=== PATIENT | female | born 1950 | race Caucasian/White ===

== ENCOUNTER 2020-05-02 11:05 | Outpatient (CLI) | payer MEDICARE, SELFPAY ==
[2020-05-08 06:48] LABS: Triiodothyronine T3 Free 2.9 pg/mL (2.3-4.2)
== END 2020-05-02 11:06 | disposition home or self-care (01) ==
PROVIDERS: PCP Family Medicine; Visit Provider Internal Medicine Endocrinology, Diabetes & Metabolism
DX: E03.9 Hypothyroidism, unspecified (principal); E04.9 Nontoxic goiter, unspecified
CPT/HCPCS: 36415; 84439; 84443; 84481

== ENCOUNTER 2020-05-17 09:54 | Outpatient (CLI) | payer MEDICARE, SELFPAY ==
[2020-05-17 10:43] LABS: Anion Gap 5 mmol/L (8-16); Blood Urea Nitrogen 17 mg/dL (7-17); Calcium 9.3 mg/dL (8.4-10.2); Carbon Dioxide 28 mmol/L (22-30); Chloride 106 mmol/L (98-107); Estimated Glomerular Filt Rate > 60; Glucose 98 mg/dL (65-105); Potassium 4.4 mmol/L (3.4-5.0); Sodium 139 mmol/L (137-145)
== END 2020-05-17 09:55 | disposition home or self-care (01) ==
LOC: ANHLAB 09:56
PROVIDERS: PCP Family Medicine; Visit Provider Internal Medicine Endocrinology, Diabetes & Metabolism
DX: E23.6 Other disorders of pituitary gland (principal)
CPT/HCPCS: 36415; 80048; 82533

== ENCOUNTER 2020-05-30 10:58 | Outpatient (CLI) | payer MEDICARE, SELFPAY ==
[2020-06-03 05:06] LABS: Adrenocorticotropic Hormone 9 pg/mL (6-50)
== END 2020-05-30 10:59 | disposition home or self-care (01) ==
LOC: ANHLAB 11:00
PROVIDERS: PCP Family Medicine; Visit Provider Internal Medicine Endocrinology, Diabetes & Metabolism
DX: E23.6 Other disorders of pituitary gland (principal); R79.89 Other specified abnormal findings of blood chemistry
CPT/HCPCS: 36415; 82024

== ENCOUNTER 2020-07-04 08:51 | Outpatient (CLI) | payer MEDICARE, SELFPAY ==
[2020-07-07 21:24] LABS: Adrenocorticotropic Hormone 11 pg/mL (6-50)
== END 2020-07-04 08:52 | disposition home or self-care (01) ==
PROVIDERS: PCP Family Medicine; Visit Provider Internal Medicine Endocrinology, Diabetes & Metabolism
DX: E03.9 Hypothyroidism, unspecified (principal); E23.6 Other disorders of pituitary gland; M85.80 Other specified disorders of bone density and structure, unspecified site
CPT/HCPCS: 36415; 82024

== ENCOUNTER 2020-08-08 09:07 | Outpatient (CLI) | payer MEDICARE, SELFPAY ==
--- NOTE | ~2020-08-08 | MM_ITS ---
EXAMINATION: MM screening frank BI w fozia HISTORY: Screening mammogram TECHNIQUE: Craniocaudal and mediolateral oblique 3-D tomosynthesis images were obtained and synthetic 2-D images were generated. CAD analysis was submitted and interpreted. COMPARISON: 05/08/2019 left screening and right diagnostic digital mammogram and limited right breast ultrasound examination 10/29/2018, 04/10/2018 diagnostic right digital mammogram and limited right breast ultrasound examinatio ns 04/04/2018, 04/03/2017 bilateral digital screening mammogram examinations BREAST PARENCHYMAL COMPOSITION: There are scattered areas of fibroglandular density. FINDINGS: Stable mild fibroglandular asymmetry. There is no evidence of suspicious mass, calcificatio n, or architectural distortion to suggest malignancy in either breast. There has been no suspicious i nterval change. IMPRESSION: 1. No mammographic evidence of malignancy. 2. Recommend routine screening mammography in one year. BI-RADS Category 2: Benign finding(s). Reviewed, dictated and finalized at location A. ATION CONSULTANT
== END 2020-08-08 09:08 | disposition home or self-care (01) ==
LOC: ANHIMG 09:09
PROVIDERS: PCP Family Medicine; Visit Provider Obstetrics & Gynecology
DX: Z12.31 Encounter for screening mammogram for malignant neoplasm of breast (principal)
CPT/HCPCS: 77063; 77067

== ENCOUNTER 2020-08-08 09:51 | Outpatient (CLI) | payer MEDICARE, SELFPAY ==
[2020-08-08 12:53] LABS: Cortisol Random > 123.00 ug/dL
[2020-08-10 04:54] LABS: Adrenocorticotropic Hormone 10 pg/mL (6-50)
== END 2020-08-08 09:52 | disposition home or self-care (01) ==
PROVIDERS: PCP Family Medicine; Visit Provider Internal Medicine Endocrinology, Diabetes & Metabolism
DX: E23.6 Other disorders of pituitary gland (principal); Z12.31 Encounter for screening mammogram for malignant neoplasm of breast
CPT/HCPCS: 36415; 77063; 77067; 82024; 82533

== ENCOUNTER 2020-08-22 08:45 | Outpatient (CLI) | payer MEDICARE, SELFPAY ==
--- NOTE | ~2020-08-22 | DEXA_ITS ---
Bone Density Report Name: Monica Sosa Age: 70 Sex: Female Ethnicity: White Date of : 1950 Indication: postmenopausal; Referring Provider: KAYLA LITTLE Study: Bone densitometry was performed. Exam Date: August 22, 2020 Accession number: [id number] Bone Density: Region BMD T-score Z-score Classification AP Spine (L1-L4) 0.803 -2.2 -0.2 Osteopenia Femoral Neck (Left) 0.611 -2.1 -0.4 Osteopenia Total Hip (Left) 0.779 -1.3 0.1 Osteopenia Total Hip Bilateral Avg 0.742 -1.6 -0.2 Osteopenia Femoral Neck (Right) 0.602 -2.2 -0.5 Osteopenia Total Hip (Right) 0.705 -1.9 -0.5 Osteopenia World Health Organization criteria for BMD impression classify patients as: Normal (T-score at or above -1.0), Osteopenia (T-score between -1.0 and -2.5), or Osteoporosis (T-score at or below -2.5). 10-year Fracture Risk: FRAX not reported because: Treated for osteoporosis Clinical Information Provided by Patient: Is being treated for osteoporosis Has used the following medications: Actonel (i.e. risedronate) Patient maximum height was 67 Menopause Age: 51 Does not regularly consume dairy products Onset of menses at age 14 Number of children 2 Impression: The patient has low bone mass, based on the Total Spine T-score. Discussion: It is important to ask patients whether they are taking their medications and to encourage continued and appropriate compliance with their osteoporosis therapies to reduce fracture risk. It is also important to review their risk factors and encourage appropriate calcium and vitamin D intakes, exercise, fall prevention and other lifestyle measures. Follow-Up: Consider a repeat BMD and Vertebral Fracture Assessment (VFA) exam in 2 years or sooner if medically necessary, to reassess this patient's status. Reported by: [facility] on 08/22/2020 9:00:00 AM. Reviewed, dictated and finalized at location ACinda COOK
== END 2020-08-22 08:46 | disposition home or self-care (01) ==
PROVIDERS: PCP Family Medicine; Visit Provider Obstetrics & Gynecology
DX: Z13.820 Encounter for screening for osteoporosis (principal); M85.88 Other specified disorders of bone density and structure, other site; M85.852 Other specified disorders of bone density and structure, left thigh; M85.851 Other specified disorders of bone density and structure, right thigh
CPT/HCPCS: 77080

== ENCOUNTER 2020-12-28 09:30 | Outpatient (CLI) | payer MEDICARE, SELFPAY ==
[2020-12-28 10:28] LABS: Cortisol Baseline 7.19 ug/dL
[2020-12-28 10:41] LABS: Free T4 Free Thyroxine 0.91 ng/mL (0.78-2.19)
[2020-12-30 23:29] LABS: Adrenocorticotropic Hormone 9 pg/mL (6-50)
== END 2020-12-28 09:31 | disposition home or self-care (01) ==
PROVIDERS: PCP Family Medicine; Visit Provider Internal Medicine Endocrinology, Diabetes & Metabolism
DX: E23.6 Other disorders of pituitary gland (principal); R79.89 Other specified abnormal findings of blood chemistry
CPT/HCPCS: 36415; 82024; 82533; 84439; 84443; 84480

== ENCOUNTER 2021-01-02 08:21 | Outpatient (CLI) | payer MEDICARE, SELFPAY ==
--- NOTE | ~2021-01-02 | XR_ITS ---
XR ankle RT min 3V 01/02/2021 08:57 Indication: Right ankle pain Procedure: 3 views right ankle Comparison: No prior studies for comparison. Findings: No fracture, subluxation or dislocation. Ankle mortise intact. There is a small sclerotic l esion of the talus, most likely benign bone island. There is a degenerative calcaneal enthesophyte at the plantar surface. Impression: 1: No significant bone or joint abnormality. Reviewed, dictated and finalized at location B. Impression: 1: No significant bone or joint abnormality.
--- NOTE | ~2021-01-02 | XR_ITS ---
XR foot RT min 3V 01/02/2021 08:58 Indication: Right foot pain Procedure: 3 views right foot Comparison: 08/04/2018 Findings: There is moderate osteoarthritis of the first MTP joint with hallux valgus. Osteopenia. Lis franc joint intact. There is a degenerative calcaneal enthesophyte at the plantar surface. There is a bone island of the talus which appears unchanged. No focal soft tissue abnormality. Impression: 1: Moderate osteoarthritis of the first MTP joint with hallux valgus. Reviewed, dictated and finalized at location B. Impression: 1: Moderate osteoarthritis of the first MTP joint with hallux valgus.
== END 2021-01-02 08:22 | disposition home or self-care (01) ==
LOC: CHSIMG 08:25
PROVIDERS: PCP Family Medicine; Visit Provider Orthopaedic Surgery
DX: M25.571 Pain in right ankle and joints of right foot (principal); M79.671 Pain in right foot
CPT/HCPCS: 73610; 73630

== ENCOUNTER 2021-01-20 12:17 | Outpatient (CLI) | payer MEDICARE, SELFPAY ==
[2021-01-20 13:01] LABS: Uric Acid 5.5 mg/dL (2.5-7.5)
[2021-01-20 14:55] LABS: Alanine Aminotransferase 21 U/L (4-35); Albumin Level 4.3 g/dL (3.5-5.1); Alkaline Phosphatase 75 U/L (38-126); Aspartate Amino Transferase 28 U/L (14-36); Bilirubin,Total 0.3 mg/dL (0.2-1.3)
== END 2021-01-20 12:18 | disposition home or self-care (01) ==
PROVIDERS: PCP Family Medicine
DX: N20.0 Calculus of kidney (principal)
CPT/HCPCS: 36415; 80076; 81596; 84550

== ENCOUNTER 2021-07-05 12:57 | Outpatient (CLI) | payer MEDICARE, SELFPAY ==
--- NOTE | ~2021-07-05 | XR_ITS ---
EXAMINATION: XR chest 2V DATE: 07/05/2021 13:21 INDICATION: Cough. TECHNIQUE: Frontal and lateral views of the chest were obtained. COMPARISON: Chest 2 views 03/19/2014, CT abdomen and pelvis 09/03/2013 FINDINGS: There is no pneumonia, pleural effusion, or pneumothorax. The heart size is normal. There a re prominent paracardial fat pads. IMPRESSION: 1. No acute cardiopulmonary disease. Reviewed, dictated and finalized at location A.
== END 2021-07-05 12:58 | disposition home or self-care (01) ==
PROVIDERS: PCP Family Medicine; Visit Provider Family Medicine
DX: R05.9 Cough, unspecified (principal)
CPT/HCPCS: 71046

== ENCOUNTER 2021-08-10 09:10 | Outpatient (CLI) | payer MEDICARE, SELFPAY ==
--- NOTE | ~2021-08-10 | MM_ITS ---
EXAMINATION: MM screening frank BI w fozia HISTORY: Screening mammogram TECHNIQUE: Craniocaudal and mediolateral oblique 3-D tomosynthesis images were obtained and synthetic 2-D images were generated. CAD analysis was submitted and interpreted. COMPARISON: 08/08/2020 bilateral screening mammogram 05/08/2019 Right diagnostic and left screening mammogram and limited right breast ultrasound 11/06/2018 and 04/10/2018 right diagnostic mammogram and limited right breast ultrasound 04/04/2018, 720 bilateral screening mammogram examinations BREAST PARENCHYMAL COMPOSITION: There are scattered areas of fibroglandular density. FINDINGS: There is no evidence of suspicious mass, calcification, or architectural distortion to sugg est malignancy in either breast. There has been no suspicious interval change. IMPRESSION: 1. No mammographic evidence of malignancy. 2. Recommend routine screening mammography in one year. BI-RADS Category 1: Negative Reviewed, dictated and finalized at location A. [facility]
== END 2021-08-10 09:11 | disposition home or self-care (01) ==
LOC: ANHIMG 09:14
PROVIDERS: PCP Family Medicine; Visit Provider Obstetrics & Gynecology
DX: Z12.31 Encounter for screening mammogram for malignant neoplasm of breast (principal)
CPT/HCPCS: 77063; 77067

== ENCOUNTER 2021-12-25 13:11 | Outpatient (CLI) | payer MEDICARE, SELFPAY ==
[2021-12-25 13:38] LABS: Basophils Absolute Auto 0.03 K/mm3 (0.00-0.10); Basophils Percent Auto 0.5 % (0.0-1.0); Eosinophils Absolute Auto 0.15 K/mm3 (0.02-0.50); Eosinophils Percent Auto 2.5 % (1.0-6.0); Hematocrit 39.4 % (35.0-42.0); Hemoglobin 12.3 g/dL (11.7-13.8); Immature Granulocyte Absolute 0.02 K/mm3 (0.00-0.00); Immature Granulocyte Percent A 0.3 % (0.0-0.0); Lymphocytes Absolute Auto 1.78 K/mm3 (1.10-4.50); Lymphocytes Percent Auto 29.3 % (18.0-42.0); Mean Corpuscular HGB Conc 31.2 g/dL (32.0-36.0); Mean Corpuscular Hemoglobin 29.3 pg (27.0-31.0); Mean Corpuscular Volume 93.8 fL (78.0-102.0); Mean Platelet Volume 9.1 fl (9.2-11.8); Monocytes Absolute Auto 0.37 K/mm3 (0.10-0.90); Monocytes Percent Auto 6.1 % (2.0-11.0); Neutrophils Absolute Auto 3.7 K/mm3 (1.7-7.2); Neutrophils Percent Auto 61.3 % (50.0-70.0); Platelet Count Result 290 K/mm3 (150-420); Red Cell Distribution Width 13.4 % (11.6-14.4); White Blood Count 6.1 K/mm3 (4.8-10.8)
[2021-12-25 13:47] LABS: Hemoglobin A1C 5.7 % (<5.7)
[2021-12-25 15:07] LABS: Alanine Aminotransferase 29 U/L (14-59); Albumin Level 3.9 g/dL (3.4-5.0); Alkaline Phosphatase 75 U/L (46-116); Anion Gap 9 mmol/L (8-16); Aspartate Amino Transferase 23 U/L (15-37); Bilirubin,Total 0.2 mg/dL (0.00-1.00); Blood Urea Nitrogen 16 mg/dL (7-18); Calcium 9.2 mg/dL (8.5-10.1); Carbon Dioxide 29 mmol/L (21-32); Chloride 107 mmol/L (98-108); Estimated Glomerular Filt Rate 57; Free T3 2.98 pg/mL (2.18-3.98); Free T4 Free Thyroxine 0.84 ng/dL (0.76-1.46); Glucose 91 mg/dL (70-99); Magnesium 1.9 mg/dL (1.8-2.4); Osmolality Calculated 301 mOsm/kg (285-295); Potassium 4.3 mmol/L (3.5-5.1); Sodium 145 mmol/L (136-145); Thyroid Stimulating Hormone 4.22 uIU/mL (0.36-3.74); Total Protein 7.2 g/dL (6.4-8.2); Vitamin B12 1028 pg/mL (193-986)
[2021-12-27 09:10] LABS: DHEA-Sulfate 49 mcg/dL (12-133)
[2021-12-27 11:41] LABS: Cortisol Baseline 5.6 mcg/dL (***); Progesterone <0.2 ng/mL (***)
[2021-12-27 15:15] LABS: Vitamin D 25 Hydroxy 35 ng/mL (30-100)
[2021-12-28 21:29] LABS: CRP, High Sensitivity 2.6 mg/L (***)
[2021-12-29 10:18] LABS: Testosterone Free 1.8 pg/mL (0.2-3.7); Testosterone Total 15 ng/dL (2-45)
[2021-12-30 00:37] LABS: Estradiol, Ultrasensitive 4 pg/mL
== END 2021-12-25 13:12 | disposition home or self-care (01) ==
LOC: CHSLAB 13:17
PROVIDERS: PCP Family Medicine
DX: Z13.6 Encounter for screening for cardiovascular disorders (principal); E34.9 Endocrine disorder, unspecified; E27.9 Disorder of adrenal gland, unspecified; R63.5 Abnormal weight gain; E03.9 Hypothyroidism, unspecified; Z00.00 Encounter for general adult medical examination without abnormal findings; G47.00 Insomnia, unspecified; R79.82 Elevated C-reactive protein (CRP); R51.9 Headache, unspecified; E78.5 Hyperlipidemia, unspecified; R73.03 Prediabetes; R94.6 Abnormal results of thyroid function studies; Z79.899 Other long term (current) drug therapy
CPT/HCPCS: 36415; 80053; 82306; 82533; 82607; 82627; 82670; 83036; 83735; 84144; 84402; 84403; 84439; 84443; 84481; 85025; 86141

== ENCOUNTER 2022-08-15 14:53 | Outpatient (CLI) | payer MEDICARE, SELFPAY ==
--- NOTE | ~2022-08-15 | MM_ITS ---
EXAMINATION: [facility] HISTORY: Screening mammogram TECHNIQUE: Craniocaudal and mediolateral oblique 3-D tomosynthesis images were obtained and synthetic 2-D images were generated. CAD analysis was submitted and interpreted. COMPARISON: 08/10/2021, 08/08/2020, 05/08/2019 BREAST PARENCHYMAL COMPOSITION: There are scattered areas of fibroglandular density. FINDINGS: No suspicious mass, calcification, or architectural distortion are identified in either armando ast to suggest malignancy. There has been no suspicious interval change. IMPRESSION: 1. No mammographic evidence of malignancy. 2. Recommend routine screening mammography in one year. BI-RADS Category 1: Negative Reviewed, dictated and finalized at location A. TH SUPPORT SPECIALIST
== END 2022-08-15 14:54 | disposition home or self-care (01) ==
PROVIDERS: PCP Family Medicine; Visit Provider Obstetrics & Gynecology
DX: Z12.31 Encounter for screening mammogram for malignant neoplasm of breast (principal)
CPT/HCPCS: 77063; 77067

== ENCOUNTER 2023-05-14 12:01 | Outpatient (CLI) | payer MEDICARE, SELFPAY | END 2023-05-14 12:02 | disposition home or self-care (01) | LOC: CHSLAB 12:03 | PROVIDERS: PCP Family Medicine; Visit Provider Specialist | DX: C44.529 Squamous cell carcinoma of skin of other part of trunk (principal) | CPT/HCPCS: 88305 ==

== ENCOUNTER 2023-08-17 11:15 | Emergency (ER) | payer MEDICARE, SELFPAY ==
--- NOTE | ~2023-08-17 | XR_ITS ---
EXAMINATION: XR ribs RT 2V w CXR 2V INDICATION: Right-sided rib pain TECHNIQUE: PA and lateral views of the chest and 3 views of the right ribs were obtained. COMPARISON: 07/05/2021 FINDINGS: There is mild atelectasis of the left lung base. No pleural effusion or pneumothorax. The c ardiomediastinal silhouette is normal. There is moderate thoracic spondylosis. No displaced rib fract ure is identified. IMPRESSION: 1. No evidence of displaced rib fracture. 2. Mild left basilar atelectasis. Reviewed, dictated and finalized at location F. RSOLE FITTER
[2023-08-17 11:18] VITALS: BP 128/75; PULSE 67; RESP 18; TEMP 36.5; O2SAT 98
[2023-08-17] MEDS: KETOROLAC 30 MG/ML VIAL (*BKC) IM (11:39)
--- NOTE | 2023-08-17 12:19 | ED.BACK ---
HPI - Back Pain/Injury General Chief Complaint: Back Pain/Injury Stated Complaint: Fall rt back pn/knee pain Time Seen by Provider: 08/17/23 11:22 Source: patient Mode of arrival: ambulatory Limitations: no limitations History of Present Illness HPI Narrative: says 73-year-old female that presents with recent fall and injured her right mid posterior rib area with an area of tenderness with no shortness of breath there is some mild bruising to that area with no chest pain no nausea vomiting. MD elicited complaint: back pain, back injury and fall Onset (ago): hour(s) Timing: constant Severity: moderate Pain scale (0-10): 8 Quality: dull Location: right upper back Related Data Home Medications Medication Instructions Recorded Confirmed L.acidophilus-B.animalis-B.longum 1 cap PO DAILY 04/21/20 01/02/21 15 billion cell capsule (Florajen3) alpha lipoic acid 600 mg tablet 600 mg PO BID 04/21/20 01/02/21 cholecalciferol (vitamin D3) 125 125 mcg PO DAILY 04/21/20 01/02/21 mcg (5,000 unit) capsule multivitamin 1 tablet PO DAILY 04/21/20 01/02/21 vitamin B complex (B 1 tablet PO DAILY 11/16/20 01/02/21 Complex-Vitamin B12 tablet) biotin 10,000 mcg capsule See Rx Instructions PO .COMPLEX 12/05/20 01/02/21 solifenacin 5 mg tablet (Vesicare) 5 mg PO DAILY PRN 12/05/20 01/02/21 baclofen 10 mg tablet 10 mg PO DAILY 01/02/21 cyclobenzaprine 10 mg tablet 10 mg PO TID 01/02/21 diclofenac sodium 75 mg 75 mg PO BID 01/02/21 tablet,delayed release meloxicam 15 mg tablet 15 mg PO DAILY 01/02/21 Allergies Allergy/AdvReac Type Severity Reaction Status Date / Time glatiramer (copolymer 1) Allergy Mild Light Verified 01/02/21 09:37 [From Copaxone] headed, hives, nausea Review of Systems Review of Systems: All systems reviewed & are unremarkable except as noted in HPI and below PMFSH Past Medical History Medical History Acquired pes planus of right foot Anemia Arthritis Chronic pain of right ankle Hallux valgus (acquired), right foot History of hypothyroidism History of kidney stones History of nephrolithotomy with removal of calculi Kidney stones GIANLUCA (obstructive sleep apnea) Posterior tibial tendon dysfunction (PTTD) of right lower extremity Urinary frequency Vertigo Wears glasses Weight gain Surgical History Surgical History History of colonoscopy 2017 History of lumpectomy unknow which breast History of removal of calculus of renal pelvis through percutaneous nephrostomy Family History Family History Father Cerebrovascular accident Melanemia Mother Thyroid cancer Other Family history of gout Family history of kidney disease H/O: HTN (hypertension) Skin cancer Social History Social History Smoking status: Never smoker Alcohol intake: current Alcohol use details: 2 per month Substance use: never Living arrangements: with family Occupation/Education: retired Gender identity (if verbalized by the patient): Female Exam Const: General: healthy appearing Nutritional Appearance: well nourished Orientation/consciousness: patient oriented x3 Limitations: no limitations Neck: Neck: normal visual inspection, no lymphadenopathy and no meningeal signs Chest: Chest palpation & inspection: normal inspection of the chest Resp: Effort & Inspection: normal respiratory effort Auscultation: clear to auscultation bilaterally Cardio: Rate: regular rate Rhythm: regular rhythm GI: Auscultation: normal bowel sounds Skin: General skin exam: normal color Extrem: Other: Right upper posterior rib tenderness with palpation Course Course Emergency Course: reassessment of pain level has improved after receiving 30mg I am Toradol and x-ray pe
== END 2023-08-17 12:35 | disposition home or self-care (01) ==
PROVIDERS: Emergency Provider Emergency Medicine; PCP Family Medicine
DX: S23.41XA Sprain of ribs, initial encounter (principal); E03.9 Hypothyroidism, unspecified; W19.XXXA Unspecified fall, initial encounter
CPT/HCPCS: 71046; 71100; 96372; 99283; J1885

== ENCOUNTER 2023-08-27 14:32 | Outpatient (CLI) | payer MEDICARE, SELFPAY ==
--- NOTE | ~2023-08-27 | MM_ITS ---
EXAMINATION: MM screening frank BI w fozia HISTORY: Screening mammogram TECHNIQUE: Craniocaudal and mediolateral oblique 3-D tomosynthesis images were obtained and synthetic 2-D images were generated. CAD analysis was submitted and interpreted. COMPARISON: 08/15/2022, 08/10/2021, 08/08/2020 bilateral screening mammogram examinations BREAST PARENCHYMAL COMPOSITION: There are scattered areas of fibroglandular density. FINDINGS: There is no evidence of suspicious mass, calcification, or architectural distortion to sugg est malignancy in either breast. There has been no suspicious interval change. IMPRESSION: 1. No mammographic evidence of malignancy. 2. Recommend routine screening mammography in one year. BI-RADS Category 1: Negative Reviewed, dictated and finalized at location A. ER PRESS OPERATOR
== END 2023-08-27 14:33 | disposition home or self-care (01) ==
PROVIDERS: PCP Family Medicine; Visit Provider Obstetrics & Gynecology
DX: Z12.31 Encounter for screening mammogram for malignant neoplasm of breast (principal)
CPT/HCPCS: 77063; 77067

== ENCOUNTER 2024-05-12 12:21 | Outpatient (CLI) | payer MEDICARE, SELFPAY | END 2024-05-12 12:22 | disposition home or self-care (01) | LOC: CHSLAB 12:28 | PROVIDERS: PCP Family Medicine; Visit Provider Specialist | DX: C44.519 Basal cell carcinoma of skin of other part of trunk (principal) | CPT/HCPCS: 88305 ==

== ENCOUNTER 2024-09-21 12:00 | Outpatient (CLI) | payer MEDICARE, SELFPAY ==
--- NOTE | ~2024-09-21 | MM_ITS ---
EXAMINATION: MM screening frank BI w fozia HISTORY: Screening mammogram TECHNIQUE: Craniocaudal and mediolateral oblique 3-D tomosynthesis images were obtained and synthetic 2-D images were generated. CAD analysis was submitted and interpreted. COMPARISON: 08/26/2023, 08/15/2022 BREAST PARENCHYMAL COMPOSITION:Not Dense. The breasts are almost entirely fatty FINDINGS: No suspicious mass, calcification, or architectural distortion are identified in either armando ast to suggest malignancy. There has been no suspicious interval change. IMPRESSION: No mammographic evidence of malignancy. Recommend routine screening mammography in one year. BI-RADS Category 1: Negative Reviewed, dictated and finalized at location . N BANDER
== END 2024-09-21 12:01 | disposition home or self-care (01) ==
LOC: CHSIMG 12:03
PROVIDERS: PCP Family Medicine; Visit Provider Obstetrics & Gynecology
DX: Z12.31 Encounter for screening mammogram for malignant neoplasm of breast (principal)
CPT/HCPCS: 77063; 77067

== ENCOUNTER 2025-03-15 10:09 | Outpatient (CLI) | payer MEDICARE, SELFPAY ==
--- NOTE | ~2025-03-15 | DEXA_ITS ---
Bone Density Report Name: SHADI MARTINEZ Age: 74 Sex: Female Ethnicity: White Date of : 1950 Indication: osteopenia; Referring Provider: PANCHOLO Hagan Study: Bone densitometry was performed. Exam Date: March 15, 2025 Accession number: [id number] Bone Density: Region BMD T-score Z-score Classification AP Spine(L1-L4) 0.788 -2.4 0.0 Osteopenia Femoral Neck (Left) 0.591 -2.3 -0.3 Osteopenia Total Hip (Left) 0.773 -1.4 0.3 Osteopenia Femoral Neck (Right) 0.588 -2.4 -0.3 Osteopenia Total Hip (Right) 0.732 -1.7 0.0 Osteopenia Total Hip Mean 0.752 -1.6 0.2 Osteopenia World Health Organization criteria for BMD impression classify patients as: Normal (T-score at or above -1.0), Osteopenia (T-score between -1.0 and -2.5), or Osteoporosis (T-score at or below -2.5). 10-year Fracture Risk(1): Major Osteoporotic Fracture 15% Hip Fracture 3.9% Reported Risk Factors: [place] (), Neck BMD=0.588, BMI=29.6 (1) FRAX(R) Version 3.08. Fracture probability calculated for an untreated patient. Fracture probability may be lower if the patient has received treatment. Previous Exams: -- Region Exam Age BMD T-score BMD Change BMD Change Date g/cm2 vs Baseline vs Previous -- AP Spine (L1-L4) 03/15/2025 74 0.788 -2.4 -1.9%# -1.9%# 08/22/2020 70 0.803 -2.2 Total Hip(Left) 03/15/2025 74 0.773 -1.4 -0.7%# -0.7%# 08/22/2020 70 0.779 -1.3 Total Hip(Right) 03/15/2025 74 0.732 -1.7 3.8%# 3.8%# 08/22/2020 70 0.705 -1.9 -- *Denotes significance at 95% confidence level, LSC for AP Spine = 0.022 g/cm2, LSC for Total Hip = 0.027 g/cm2 # Denotes dissimilar scan types or analysis methods Clinical Information Provided by Patient: Has used the following medications: Vitamin D, Calcium Patient maximum height was 67 Menopause Age: 51 No regular weight bearing exercise Does not regularly consume dairy products Onset of menses at age 14 Number of children 2 Impression: The patient has low bone mass, based on the Total Spine T-score. The patient has an estimated ten-year risk of hip fracture of 3.9% and an estimated ten-year risk of major fracture of 15%, based on the WHO FRAX algorithm. Unable to evaluate interval change due to the use of different scan modes. Discussion: BONE DENSITY IS LOW AT ONE OR MORE SKELETAL SITES. THE PATIENT'S BMD AND CLINICAL RISK FACTORS CONTRIBUTE TO THIS PATIENT'S INCREASED RISK OF FRACTURE. This patient's lowest T-score is low at one or more skeletal sites. It meets the World Health Organization's (WHO) criteria for ?low bone mass? (T-score between -1.0 and -2.5). The patient's 10-year risk of hip fracture as calculated by FRAX exceeds the threshold where pharmacological therapy is recommended by the National Osteoporosis Foundation (NOF). However, all treatment decisions require clinical judgment and consideration of individual patient factors, including patient preferences, comorbidities, previous drug use, risk factors not captured in the FRAX model (e.g., frailty, falls, vitamin D deficiency, increased bone turnover, interval significant decline in bone density) and possible under or overestimation of fracture risk by FRAX. The patient should follow a healthful lifestyle (good nutrition with adequate calcium and vitamin D, and appropriate weight-bearing exercise). Follow-Up: Consider a repeat BMD and Vertebral Fracture Assessment (VFA) exam in 2 years or sooner if medically necessary, to reassess this patient's status. Reported by: SANTO on 03/15/2025 10:32:00 AM. Reviewed, dictated and finalized at location A.
== END 2025-03-15 10:10 | disposition home or self-care (01) ==
LOC: MICIMG 10:09
PROVIDERS: PCP Family Medicine; Visit Provider Registered Nurse
DX: Z78.0 Asymptomatic menopausal state (principal); M85.88 Other specified disorders of bone density and structure, other site; M85.852 Other specified disorders of bone density and structure, left thigh; M85.851 Other specified disorders of bone density and structure, right thigh
CPT/HCPCS: 77080